=== PATIENT | female | born 1990 | race Caucasian/White ===

== ENCOUNTER 2017-06-04 05:21 | Inpatient (IN) | payer BC ==
[~2017-06-04] VITALS: Ht 172.7 cm; Wt 83.0 kg
--- NOTE | 2017-06-05 11:03 | PR ---
[facility] [address] [facility] [place] [address] Signed PP Progress Notes Datetime Report Generated by CPN: 06/05/2017 11:03 SUBJECTIVE: [id number] Pain: Within normal limits Nausea/Vomiting: Denies Vital Signs: [id number] Vital Signs: Reviewed; Within Normal Limits Notable Details: PP Hgb/Hct = 11.5/32.3 EXAM: [id number] Abdomen/Uterus: Normal Lochia: Normal Extremities: Normal IMPRESSION/PLAN/PROCEDURES: [id number] Impression: Normal progression Plan: Discharge Procedures: None Progress Notes: Doing well, wants to go home. Signing Physician: Marciano Tobin MD CC: *Electronically Signed* 06/05/17 1103 MARCIANO TOBIN MD PATIENT NAME: RAMÓN WITT PROGRESS NOTE DATE OF : 88 PHYSICIAN: MARCIANO TOBIN MD RPT #: [id number] REPORT IS CONFIDENTIAL AND NOT TO BE RELEASED WITHOUT AUTHORIZATION
== END 2017-06-05 11:45 | disposition home or self-care (01) | DRG 775 ==
LOC: FBCO 05:21 → FBC 05:35
PROVIDERS: ADMIT General Practice
PROC: 10E0XZZ Delivery of Products of Conception, External Approach (ICD-10-PCS; principal; 2017-06-04)
PROC: 0KQM0ZZ Repair Perineum Muscle, Open Approach (ICD-10-PCS; 2017-06-04)
DX: O42.02 Full-term premature rupture of membranes, onset of labor within 24 hours of rupture (principal); Z3A.40 40 weeks gestation of pregnancy; Z37.0 Single live birth; O70.1 Second degree perineal laceration during delivery
CPT/HCPCS: 36415; 85027; J2590; J7120

== ENCOUNTER 2023-04-25 21:32 | Inpatient (IN) | payer OTHER ==
[~2023-04-25] VITALS: Ht 172.7 cm; Wt 73.5 kg
--- OUTSIDE RECORDS SUMMARY | ~2023-04-25 | XMS | Continuity of Care Document ---
Demographics + + + | Address | [address] | | | [place] [address] | + + + | Preferred Language | Unknown | + + + | Marital Status | | + + + | Worship Affiliation | Unknown | + + + | Race | White | + + + | Ethnic Group | Unknown | + + + Author + + + | Author | [facility] | + + + | Organization | [facility] | + + + | Address | [address] | | | [place] [address] | + + + | Phone | | + + + Care Team Providers + + + + | Care Chief Airport Guide Name | Role | Phone | + + + + Unavailable | Unavailable | + + + + Allergies and Intolerances + + + + + + | date | description | facility | reaction | severity | + + + + + + | (no date) | No Known | [facility] | (no reaction) | (no severity) | | | Allergies | | | | + + + + + + Encounters No information. Functional Status No information. Immunizations No information. Medications No information. Problems + + + + | date | description | facility | + + + + | 2023-04-01 09:45 | UTERINE SIZE-DATE | [facility] | | | DISCREPANCY, THIRD | | | | TRIMESTER | | + + + + | 2023-04-01 09:45 | ENCOUNTER FOR SUPRVSN OF | [facility] | | | NORMAL PREGNANC | | + + + + | 2023-04-01 09:45 | 31 WEEKS GESTATION OF | [facility] | | | | | + + + + | 2023-04-01 10:00 | ENCOUNTER FOR SUPRVSN OF | [facility] | | | NORMAL PREGNANC | | + + + + Procedures No information. Results/Labs No information. Social History No information. Vital Signs No information."
[2023-04-25 22:12] LABS: HEMOGLOBIN 12.3 g/dL (12.0-18.0); MCH 31.8 (27-36); MCHC 34.2 g/dl (30-36); MCV 92.8 fl (81-99); RBC 3.87 M/ul (4.3-5.7); RDW 13.8 (10.5-15.0)
[2023-04-25 22:17] LABS: AMPHETAMINES, UR NEGATIVE (NEGATIVE); BARBITURATES, UR NEGATIVE (NEGATIVE); BENZODIAZEPINES, UR NEGATIVE (NEGATIVE); BUPRENORPHINE,UR NEGATIVE (NEGATIVE); COCAINE, UR NEGATIVE (NEGATIVE); MARIJUANA (THC), UR NEGATIVE (NEGATIVE); MDMA, UR NEGATIVE (NEGATIVE); METHADONE, UR NEGATIVE (NEGATIVE); METHAMPHETAMINE, UR NEGATIVE (NEGATIVE); OPIATES, UR NEGATIVE (NEGATIVE); OXYCODONE, UR NEGATIVE (NEGATIVE); PHENCYCLIDINE, UR NEGATIVE (NEGATIVE); TRICYCLIC ANTIDEPRESSANT, UR NEGATIVE (NEGATIVE)
[2023-04-25 22:19] VITALS: BP 120/60
[2023-04-25 22:49] LABS: ABO O; RH POSITIVE
[2023-04-25 22:50] LABS: ANTIBODY SCREEN NEGATIVE
[2023-04-26 05:40] LABS: HEMATOCRIT 31.9 % (35.0-50.0); HEMOGLOBIN 10.7 g/dL (12.0-18.0); MCH 31.4 (27-36); MCHC 33.7 g/dl (30-36); MCV 93.1 fl (81-99); RBC 3.43 M/ul (4.3-5.7)
--- NOTE | 2023-04-26 08:23 | PR ---
[facility] [address] [facility] [place], [place] [address] Signed PP Progress Notes Datetime Report Generated by CPIon: 04/26/2023 08:23 SUBJECTIVE: [id number] Pain: Within Normal Limits Vital Signs: [id number] Vital Signs: Reviewed; Within Normal Limits Cardiovascular: Not Done Respiratory: Not Done Abdomen/Uterus: Abnormal Lochia: Normal Vulva/Perineum: Not Done Breasts: Not Done CVA Tenderness: Not Done Extremities: Normal Incision: Not Applicable Progress: Normal Exam Comments: Fundus firm, NT @ U-1. h/H 10.7/31.9, WBC 18, plat 222k IMPRESSION/PLAN/PROCEDURES: [id number] Impression: Normal Progression Plan: Continue Present Management Progress Notes: Doing well. Will continue observation. Signing Physician: Lary Duke MD Copies: ~ *Electronically Signed* 04/26/23822 LARY DUKE MD PATIENT NAME: RAMÓN WITT PROGRESS NOTE DATE OF : 88 PHYSICIAN: LARY DUKE MD RPT #: [id number] REPORT IS CONFIDENTIAL AND NOT TO BE RELEASED WITHOUT AUTHORIZATION
--- NOTE | 2023-04-27 10:02 | PR ---
[facility] [address] [facility] [place], [place] [address] Signed PP Progress Notes Datetime Report Generated by CPN: 04/27/2023 10:02 SUBJECTIVE: [id number] Pain: Within Normal Limits Vital Signs: [id number] Vital Signs: Reviewed; Within Normal Limits Cardiovascular: Not Done Respiratory: Not Done Abdomen/Uterus: Abnormal Lochia: Normal Vulva/Perineum: Not Done Breasts: Not Done CVA Tenderness: Not Done Extremities: Normal Incision: Not Applicable Progress: Normal Exam Comments: Fundus firm, NT @ U-2 IMPRESSION/PLAN/PROCEDURES: [id number] Impression: Normal Progression Plan: Discharge Procedures: None Progress Notes: Doing well. She is ready for D/C. Signing Physician: Lary Duke MD Copies: ~ *Electronically Signed* 04/27/23 1002 LARY DUKE MD PATIENT NAME: RAMÓN WITT PROGRESS NOTE DATE OF : 88 PHYSICIAN: LARY DUKE MD RPT #: [id number] REPORT IS CONFIDENTIAL AND NOT TO BE RELEASED WITHOUT AUTHORIZATION
--- NOTE | 2023-04-27 13:31 | NUR ---
DAD HOLDING BABY. MOM UP AND OUT OF BED. BABY TENDED LOVINGLY BY BOTH PARENTS. CONSENTED TO PRAYER. PRAYED FOR GOOD BEGINNINGS AND ONGOING BLESSING.
--- NOTE | 2023-05-02 11:44 | PATH ---
[facility] [address] [place], [place] [address] Signed SPECIMEN(S): A PLACENTA SPECIMEN SOURCE: A. PLACENTA CLINICAL HISTORY: Mother's age: 33. OB history: . Gestational age: 35.3. score: 7, 9. Length of umbilical cord at delivery: Normal. Rh positive. Antibody screen: Negative. Maternal serologies: Rubella immune, RPR nonreactive, hepatitis screen nonreactive, GBS collected, pending. Specific issues of concern: labor, atypical fluid color (brown) and abnormal appearance of periphery of placental disc. FINAL PATHOLOGIC DIAGNOSIS: Placenta: - Slightly immature 364 gm placenta (approximately 35th percentile for estimated gestational age) with three-vessel umbilical cord. - Focal acute chorionitis. - Negative for significant amnionitis or funisitis. - Villous and perivillous fibrin deposition and calcification. - Negative for significant placental disc infarction. JVR:[facility] MICROSCOPIC EXAMINATION: Histologic sections of all submitted blocks are examined by light microscopy. These findings, together with the gross examination, support the pathologic diagnosis. GROSS DESCRIPTION: The specimen, labeled and designated "Devon Witt, " and designated on the requisition "placenta," is received fresh and placed in formalin and consists of welch discoid placenta with the following parameters: Umbilical cord: Insertion eccentric, measurement 27.5 x 1.3 cm; trivascular. Cord coiling index (per 10 cm): Three. Lesions: Not grossly identified. Membranes: Insertion site: Circumvallate, dusky brown with a slight yellow-green discoloration. Disrupted. Other: Not grossly identified. Chorionic Plate: Normal radiating vascular pattern, dusky red with diffuse subchorionic fibrin that involves approximately 95% of the surface. Lesions: Not grossly identified. Other: Not grossly PATIENT NAME: RAMÓN WITT PATHOLOGY DATE OF : 88 REPORT #: [id number] PHYSICIAN: OMEGA MARRERO PCP: NO PRIMARY CARE PHYSICIAN REPORT IS CONFIDENTIAL AND NOT TO BE RELEASED WITHOUT AUTHORIZATION [facility] [address] [place], [place] [address] Signed identified. Maternal Surface: Normal cotyledons, intact. Lesions: Not grossly identified. Measurement: 16.6 x 13.4 x 3.2 cm. 364 g Cut Surface: Maroon and spongy. Lesions: The subchorionic fibrin extends into the underlying parenchyma and involves approximately 20% of the placenta disc. Basal plate fibrin 0.1 cm in thickness. Other Findings: Not grossly identified. Cassette Summary: (A1) membranes and umbilical cord (A2) placenta parenchyma (A3) placenta parenchyma (A4) placenta parenchyma FB (under the direct supervision of a pathologist) The Gross Description was prepared using a voice recognition system. The report was reviewed for accuracy; however, sound-alike word errors, addition and/or deletions may occur. If there is any question about this report, please contact Client Services. PERFORMING LABORATORY: Technical component was performed by [facility], [address] [place] [id number] (CLIA# [id number]). Professional interpretation was performed by [facility], [address] [place] [id number] (CLIA#: [id number]). Diagnostician: José Miguel Garcia MD Pathologist Electronically Signed 05/02/2023 Copies: ~ PATIENT NAME: WITTRAMÓN PATHOLOGY DATE OF : 88 REPORT #: [id number] PHYSICIAN: OMEGA MARRERO PCP: NO PRIMARY CARE PHYSICIAN REPORT IS CONFIDENTIAL AND NOT TO BE RELEASED WITHOUT AUTHORIZATION
== END 2023-04-27 17:50 | disposition home or self-care (01) | DRG 807 ==
LOC: FBCO 21:32 → FBC 21:50
PROVIDERS: ADMIT Obstetrics & Gynecology; ATTEND Obstetrics & Gynecology
PROC: 10E0XZZ Delivery of Products of Conception, External Approach (ICD-10-PCS; principal; 2023-04-25)
PROC: 00HU33Z Insertion of Infusion Device into Spinal Canal, Percutaneous Approach (ICD-10-PCS; 2023-04-25)
PROC: 3E0R3BZ Introduction of Anesthetic Agent into Spinal Canal, Percutaneous Approach (ICD-10-PCS; 2023-04-25)
DX: O60.14X0 Preterm labor third trimester with preterm delivery third trimester, not applicable or unspecified (principal); O77.0 Labor and delivery complicated by meconium in amniotic fluid; Z37.0 Single live birth; Z67.40 Type O blood, Rh positive; Z3A.35 35 weeks gestation of pregnancy
CPT/HCPCS: 01960; 36415; 85027; 86850; 86900; 86901; 87653; A9270; J2540; J2590; J2795; J7121